=== PATIENT | male | born 1990 | race Caucasian/White ===

== ENCOUNTER 2024-09-07 17:25 | Emergency (ER) | payer BC, SELFPAY ==
[2024-09-07 17:29] VITALS: BP 132/82
[2024-09-07 17:59] LABS: % Basophils 0.6 % (0-2); % Eosinophils 0.6 % (0-6); % Immature Granulocytes 0.4 % (0-0.5); % Lymphocytes 24.8 % (20.5-51.1); % Monocytes 7.1 % (1.7-9.3); % Neutrophils 66.5 % (42.2-75.2); Absolute Lymphocytes 1.7 10^3/uL (1.2-3.4); Absolute Monocytes 0.5 10^3/uL (0.1-0.6); Absolute Neutrophils 4.7 10^3/uL (1.4-6.5); Hematocrit 47.7 % (39.0-52.0); Mean Corp Hgb Conc. 35.6 g/dL (33.0-37.0); Mean Corpuscular Hgb 29.6 pg (27.0-31.0); Mean Platelet Volume 10.7 fL (7.4-10.4); Nucleated Red Blood Cells % 0 % (-); Platelet Count 204 10^3/uL (130-400); Red Blood Cell Count 5.75 10^6/uL (4.70-6.10); Red Cell Dist. Width 12.3 % (11.5-14.5)
[2024-09-07 18:15] LABS: ALT (SGPT) 40 U/L (0-50); AST (SGOT) 42 U/L (17-59); Albumin 4.4 g/dl (3.5-5.0); Alkaline Phosphatase 65 U/L (38-126); Blood Urea Nitrogen 19 mg/dl (9-20); Carbon Dioxide 24 mmol/L (22-30); Chloride 106 mmol/L (98-107); Glucose 96 mg/dl (70-99); Potassium 3.7 mmol/L (3.5-5.1); Sodium 139 mmol/L (135-145); Total Bilirubin 1.5 mg/dl (0.2-1.3); Total Protein 7.3 g/dl (6.3-8.2); eGFR > 60.00
[2024-09-07 18:25] LABS: Troponin I < 0.012 ng/ml
[2024-09-07 18:46] LABS: TSH Reflex To Free T4 1.29 uIU/ml (0.47-4.68)
--- NOTE | 2024-09-07 19:12 | ED.GENMED ---
History of Present Illness
General
Chief Complaint: Heart Rate Problem
Source: patient
Exam Limitations: none
Time Seen by Provider: 09/07/24 18:53
History of Present Illness
History of Present Illness:
See MDM
Past History
Past History
ED Past Medical History: Arrthythmia
ED Past Surgical History: None
Social History
Tobacco: Non-smoker
Alcohol: None
Phy Exam
Physical Exam
Physical Exam:
See MDM
Scores
[id number] Score for Afib Stroke Risk
Age in Years (65=0, 65-74=1, >/=75=2): <65
Sex (Female=+1): Male
Congestive Heart Failure History (Yes=+1): No
Hypertension History (Yes=+1): No
Stroke/TIA/Thromboembolism History (Yes=+2): No
Vascular Disease History (Yes=+1): No
Diabetes Mellitus (Yes=+1): No
Score: 0
Anticoagulation Recommendations: Anticoagulation not indicated (as validated in nonvalvular afib). Consider anticoagulation irrespective of score in patients with HCM
Course
Orders/Labs/Results
Orders:
Orders
09/07/24 17:26
Electrocardiogram (*1) Urgent
Reason for Study: Atrial Fibrillation
09/07/24 17:27
EKG- Treatment ONCE
09/07/24 17:48
Complete Blood Count/With Diff Urgent
Comprehensive Metabolic Panel Urgent
TSH Reflex To Free T4 Urgent
Troponin I Urgent
Abnormal Lab Results
09/07/24
17:48
MPV 10.7 H fL
(7.4-10.4)
Total Bilirubin 1.5 H mg/dl
(0.2-1.3)
09/07/24 17:48
09/07/24 17:48
Vital Signs
Initial and Last Documented VS:
Initial Vital Signs
Temp Pulse Resp BP Pulse Ox
97.9 F 80 20 132/82 99
09/07/24 17:29 09/07/24 17:29 09/07/24 17:29 09/07/24 17:29 09/07/24 17:29
Last Documented Vital Signs
Temp Pulse Resp BP Pulse Ox
97.9 F 80 20 132/82 99
09/07/24 17:29 09/07/24 17:29 09/07/24 17:29 09/07/24 17:29 09/07/24 17:29
MDM/Problems Addressed
Differential Diagnosis Includes:
HPI and MDM Narrative:
33-year-old male presenting for evaluation of palpitations and A-fib. He does have a history of paroxysmal A-fib. Patient was in the city earlier today and went to [facility]. While there, patient states he did not like the care. He states
they gave him a dose of IV Cardizem and shot of heparin and they were planning on admitting and starting Coumadin. Patient left AMA. He states all symptoms resolved and he is now in sinus rhythm. He has followed up with [place] [facility] in the past for the same thing. His [id number] score is 0.
Blood work was done prior to my evaluation showing normal electrolytes, normal thyroid and negative troponin
Physical exam
General: Well appearing and non-toxic
HEENT: protecting airway
Neck: appears supple
CV: No evidence of cyanosis. Regular rate and rhythm
Resp: No accessory muscle use
Abd: Non-distended
Extremities: No deformities. No leg edema
Neuro: alert
Psych: Normal affect
Skin: Intact
Problems Addressed including Acute and Chronic Conditions affecting care:
1. Paroxysmal A-fib
Acuity: acute
Prognosis: stable
Details: Patient currently in sinus rhythm.
Updates
Case discussed with on-call streetcar repairer helper Dr. Valero. Based on [id number] score, we discussed no aspirin and no anticoagulation. Will start Lopressor and placed on cardiac callback tracker
Differential Diagnosis (but not limited to):
Testing considered:
Drug therapy (if applicable): OTC meds, please see d/c instruction regarding Rx drugs
Amount and/or Complexity of Data Reviewed
Clinical info obtained from: Patient
External data reviewed: N/A
Labs I independently reviewed (but not limited to): Troponin intellectual
Radiology: N/A
Pulse Ox: not hypoxic
EKG independently reviewed: Sinus rhythm, normal axis, no STEMI
Sample Stitcher: Sinus rhythm
Critical Care: N/A
Risk of Complication:
Social Determinants of health: Good social support
Discussed with other providers: Cardiology
Escalation of Care includes Admit/Obs: After being observed in the Emergency Department, pt stable for discharge.
Occasional wrong word or 'sound a like' substitutions may have occurred due to the inherent limitations of voice recognition software. Read the chart carefully and recognize, using context, where substitutions have occurred.
*Critical Care Note
Total Time (30-74mins, 75-104mins- exclusive of procedures): Not Applicable
ED Attending Note
-
Portions of this chart may have been created with voice recognition software.� Occasional wrong word or��sound alike� substitutions may have occurred due to the inherent limitations of voice recognition software.
Discharge Plan
Departure
Patient Disposition: Home (Routine Discharge)
Date of Disposition: 09/07/24
Time of Disposition: 19:21
Patient with high blood pressure during this ER visit?: No
Discharge Problem:
PAF (paroxysmal atrial fibrillation)
Instructions: Atrial Fibrillation (DC), Chest Pain DCA Follow Up
Prescriptions:
New
metoprolol succinate [Toprol XL] 25 mg tablet extended release 24 hr
12.5 mg PO DAILY Qty: 30 0RF
No Action
finasteride 1 mg Tablet
1 mg PO DAILY
albuterol sulfate 90 mcg/actuation HFA aerosol inhaler
2 puff inhalation Q6H PRN (Reason: shortness of breath or wheezing) Qty: 8.5 0RF
oseltamivir [Tamiflu] 75 mg capsule
75 mg PO BID 5 Days Qty: 10 0RF
Activity Restrictions/Additional Instructions:
Please return for any worsening symptoms.
You may return at any time if you have further concerns.
Please follow up with your doctor at the first available appointment, preferably this week.
You were placed on the cardiac callback tracker. Someone from their office should call you in the next few days. If you do not hear from them in the next few days, please give them a call.
Thank you for choosing [facility].
Interventions
Interventions:
*Risk Screen - Suicide Last Done: 09/07/24 17:29
Discharge Date and Time
Print Language: SWISS
[2024-09-07] MEDS: LOPRESSOR 12.5 MG PO (19:30)
[2024-09-07 19:37] VITALS: BP 130/82
== END 2024-09-07 19:45 | disposition home or self-care (01) ==
LOC: EMR 17:25
PROVIDERS: Emergency Medicine; EMERGENCY PHYSICIAN Student in an Organized Health Care Education/Training Program; FAMILY PHYSICIAN Family Medicine
DX: I48.0 Paroxysmal atrial fibrillation (principal)
CPT/HCPCS: 99284; 80053; 84443; 84484; 85025; 93005

== ENCOUNTER → 2025-07-04 13:57 | Outpatient (REF) | payer BC, SELFPAY | LOC: HWRCS 13:57 | PROVIDERS: ATTENDING PHYSICIAN Physician Assistant Medical; FAMILY PHYSICIAN Family Medicine | DX: R00.2 Palpitations (principal); I48.0 Paroxysmal atrial fibrillation | CPT/HCPCS: 93306 ==